=== PATIENT | female | born 1980 | race African-American/Black ===

== ENCOUNTER 2017-07-11 21:43 | Emergency (ER) | payer MEDICAID, OTHER ==
[~2017-07-11] VITALS: Ht 162.6 cm; Wt 102.3 kg
[~2017-07-11 21:43] MED LIST: PENVK500 PO; Z.0.NO CURRENT MEDS
[2017-07-11 21:46] VITALS: BP 161/100; PULSE 99; RESP 16; TEMP 98.4; O2SAT 98
[2017-07-11] MEDS ORDERED: PROP10TA6 PO (23:34)
--- NOTE | 2017-07-11 23:53 | PD ---
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 She says that she put a tampon in prior to going to sleep, she then had sexual intercourse without taking out the tampon. She says she tried to find it, but was unable to. She says she feels some lower abdominal cramping. She is currently on her menstrual period. She was feeling in her normal state of health prior to this. She has not had any vaginal discharge. [facility] Past Medical History Asthma: Yes Cardiovascular Problems: Yes (HTN) Diminished Hearing: No Hepatitis: Yes (B) Hypertension: Yes ?: Not LMP: now : 3 Para: 3 Miscarriage: 0 : 0 Ovarian Cysts: Yes Past Surgical History Gynecologic Surgery: Yes (2 C-SECTIONS/OOPHORECTOMY) Neurologic Surgery: Yes Social History Alcohol Use: No Tobacco Use: Yes (2 PPD) Substance Use: No Allergies-Medications (Allergen,Severity, Reaction): Coded Allergies: amoxicillin (Verified Allergy, Intermediate, 07/11/17) aspirin (Unverified Allergy, Intermediate, Nausea/Vomiting, 07/11/17) lactose (Unverified Allergy, Intermediate, Nausea/Vomiting, 07/11/17) Reported Meds & Prescriptions Reported Meds & Active Scripts Active Reported Propranolol (Propranolol HCl) 10 Mg Tab 10 Mg PO Q12HR Penicillin V Potassium 500 Mg Tab 500 Mg PO BID 8 Days No Current Meds (Miscellaneous Medication) Misc Review of Systems General / Constitutional: No: Fever, Chills HENT: No: Headaches, Lightheadedness Cardiovascular: No: Chest Pain or Discomfort Respiratory: No: Shortness of Breath Gastrointestinal: Positive: Abdominal Pain, No: Nausea, Vomiting Genitourinary: No: Dysuria, Discharge Musculoskeletal: No: Myalgias Skin: No Rash, No Change in Pigmentation Neurologic: No: Weakness, Dizziness Physical Exam Narrative GENERAL: Awake and alert, in no acute distress. SKIN: Focused skin assessment warm/dry. HEAD: Atraumatic. Normocephalic. EYES: Pupils equal and round. No scleral icterus. ENT: Mucous membranes pink and moist. CARDIOVASCULAR: Regular rate and rhythm. No murmur appreciated. RESPIRATORY: No accessory muscle use. Clear to auscultation. Breath sounds equal bilaterally. GASTROINTESTINAL: Abdomen soft, nondistended. Mild tenderness to the lower abdomen. No rebound or guarding. : exam performed in the presence of a nurse. No tampon or foreign body seen in the vagina. No cervical lesions or discharge. NEUROLOGICAL: Awake and alert. No obvious cranial nerve deficits. Motor grossly within normal limits. Normal speech. Data Data Last Documented VS Vital Signs Date Time Temp Pulse Resp B/P (MAP) Pulse Ox O2 Delivery O2 Flow Rate FiO2 07/11/17 21:46 98.4 99 16 161/100 (120) 98 MDM Medical Decision Making Medical Screen Exam Complete: Yes Emergency Medical Condition: Yes Medical Record Reviewed: Yes Differential Diagnosis Foreign body versus menstrual cramps versus UTI Narrative Course Patient is a 37-year-old female who comes in because she believes she has a tampon stuck in her vagina. Exam shows no foreign body in the vagina. Patient reassured. Advised follow-up with gynecology. Advised to return to the ED as needed for any worsening symptoms. Diagnosis Primary Impression: Pelvic pressure in female Patient Instructions: General Instructions, Pelvic Pain (ED) Additional Instructions: Follow-up with gynecology. Return to the ED as needed for any worsening symptoms. Disposition: 01 DISCHARGE HOME Condition: Stable Nelly Aquino MD Jul 11, 2017 23:53
== END 2017-07-12 00:06 | disposition home or self-care (01) ==
LOC: NEPD 21:43
DX: R10.2 Pelvic and perineal pain (principal); I10 Essential (primary) hypertension; F17.200 Nicotine dependence, unspecified, uncomplicated
CPT/HCPCS: 99282